=== PATIENT | female | born 1995 | race Caucasian/White ===

== ENCOUNTER 2019-05-12 13:57 | Emergency (ER) | payer OTHER, SELFPAY ==
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
== END 2019-05-12 14:42 | disposition home or self-care (01) ==
PROVIDERS: Emergency Provider Family Medicine
DX: K52.9 Noninfective gastroenteritis and colitis, unspecified (principal)
CPT/HCPCS: 99213; G0463

== ENCOUNTER 2022-12-01 01:49 | Emergency (ER) | payer OTHER, SELFPAY ==
--- NOTE | ~2022-12-01 | CT_ITS ---
EXAMINATION: CT ankle RT wo con DATE: 12/01/2022 06:25 INDICATION: Right ankle pain TECHNIQUE: Computed tomography (CT) of the right ankle was performed without intravenous contrast. Th e dose-length product (DLP) was 416.19 mGy-cm. Automated exposure control and iterative reconstructio n technique were employed. COMPARISON: None FINDINGS: There is a comminuted transverse fracture of the talar neck. The distal fracture fragment d emonstrates 8 mm of lateral subluxation relative to the talar dome. There is mild lateral widening of the tibiotalar joint. No additional fracture is identified. There is soft tissue swelling surroundin g the ankle. There is slight posterior subluxation of the calcaneus with respect to the talus. IMPRESSION: 1. Comminuted fracture of the talar neck with 8 mm of lateral subluxation of the distal fracture frag ment relative to the talar dome. 2. Slight posterior subluxation of the calcaneus with respect to the talus. Reviewed, dictated and finalized at location A. IMPRESSION: 1. Comminuted fracture of the talar neck with 8 mm of lateral subluxation of th e distal fracture fragment relative to the talar dome. 2. Slight posterior subluxation of the calcaneus with respect to the talus.
--- NOTE | ~2022-12-01 | XR_ITS ---
EXAMINATION: XR ankle RT min 3V INDICATION: Right ankle pain, initial encounter TECHNIQUE: Four views of the right ankle are obtained. COMPARISON: None available FINDINGS: There is a comminuted, transverse talar neck fracture. The distal fracture fragment appears to be laterally subluxed approximately 6 mm. There is mild widening of the lateral tibiotalar joint space. There is medial soft tissue swelling of ankle. No additional fracture is identified. IMPRESSION: 1. Comminuted transverse talar neck fracture with approximately 6 mm of lateral subluxation of the di stal fracture fragment. Reviewed, dictated and finalized at location A. IMPRESSION: 1. Comminuted transverse talar neck fracture with approximately 6 mm of lateral subluxation of the distal fracture fragment.
--- NOTE | ~2022-12-01 | XR_ITS ---
EXAMINATION: XR tibia fibula LT 2V INDICATION: Left leg pain TECHNIQUE: Two views of the left tibia and fibula are obtained on four radiographs. COMPARISON: None available FINDINGS: No fracture, dislocation, or subluxation. The bones and joint spaces are normal. There is m ild anterior soft tissue swelling over the proximal tibia. IMPRESSION: 1. No acute osseous abnormality. Reviewed, dictated and finalized at location A.
--- NOTE | ~2022-12-01 | XR_ITS ---
EXAMINATION: XR foot RT min 3V DATE: 12/01/2022 02:50 INDICATION: Right foot pain and swelling TECHNIQUE: Dorsoplantar, lateral, and 2 oblique views of the right foot were obtained. COMPARISON: None. FINDINGS: There is a comminuted talar neck fracture described on ankle radiographs. No additional fra cture of the foot is identified. The joint spaces of the mid and distal foot are unremarkable. There is soft tissue swelling of ankle.. IMPRESSION: 1. Comminuted talar neck fracture. Reviewed, dictated and finalized at location A.
[2022-12-01 01:52] VITALS: BP 117/72; PULSE 87; RESP 16; TEMP 36.6; O2SAT 99
[2022-12-01] MEDS: HYDROmorphone HCL INJ (*CRX) 1 MG/ML SYR 0.5 MG IV PUSH ×3 (02:21→07:12)
[2022-12-01] MEDS: ONDANSETRON INJ 4 MG/2 ML VIAL IV PUSH (02:21)
[2022-12-01] MEDS: ACETAMINOPHEN 500 MG TABLET 1000 MG PO (02:22)
[2022-12-01 04:16] VITALS: BP 105/61; PULSE 67; RESP 17; O2SAT 97
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
[2022-12-01] MEDS: SODIUM CHLORIDE 0.9% IV 1,000 ML 999 ML IV CONT (05:34)
[2022-12-01] MEDS: KETOROLAC 15 MG/ML VIAL (*BKC) IV PUSH (05:44)
[2022-12-01 06:21] LABS: Basophils Absolute Auto 0.1 K/mm3 (0.0-0.1); Basophils Percent Auto 0.8 % (0.2-1.2); Eosinophils Absolute Auto 0.2 K/mm3 (0-0.3); Eosinophils Percent Auto 1.4 % (0-4.4); Hematocrit 36.3 % (37.0-47.0); Hemoglobin 11.1 g/dL (12.0-15.0); Immature Granulocyte Absolute 0.04 K/mm3 (0.00-0.031); Immature Granulocyte Percent A 0.4 % (0-0.5); Lymphocytes Absolute Auto 2.69 K/mm3 (0.9-3.2); Mean Corpuscular HGB Conc 30.6 g/dl (32-36); Mean Corpuscular Hemoglobin 25.3 pg (26-34); Mean Corpuscular Volume 82.9 fl (80-100); Mean Platelet Volume 10.2 fl (7.4-10.4); Monocytes Absolute Auto 0.7 K/mm3 (0.1-0.6); Monocytes Percent Auto 6.8 % (2.6-8.5); Neutrophils Absolute Auto 7.1 K/mm3 (1.3-6.7); Neutrophils Percent Auto 65.6 % (45.5-73.1); Platelet Count Result 368 k/mm3 (150-375); Red Blood Count 4.38 M/mm3 (4.2-5.4); Red Cell Distribution Width 13.9 % (11.5-14.5); White Blood Count 10.8 K/mm3 (4.5-10.0)
[2022-12-01 06:27] LABS: Appearance Urine Cloudy (Clear); Bacteria Urine 1+ /hpf; Bilirubin Urine Negative (Negative); Blood Urine Negative (Negative); Color Urine Yellow (Yellow); Glucose Urine UA Negative (Negative); Ketones Urine Negative (Negative); Leukocyte Esterase Ur 3+ LEU/UL (Negative); Nitrate Urine Negative (Negative); Non Pathogenic Casts 0-2; Protein Urine Negative (Negative); RBC Urine 0-2 /hpf (0-2); Specific Grav Ur 1.012 (1.001-1.035); Squamous Epithelial Cell Urine None seen /hpf (Few); Urobilinogen Urine 0.2 mg/dL (<2.0); WBC Urine >100 /hpf
[2022-12-01 06:30] LABS: Anion Gap 8 mmol/L (8-16); Blood Urea Nitrogen 12 mg/dL (7-17); Calcium 8.3 mg/dL (8.4-10.2); Carbon Dioxide 23 mmol/L (22-30); Chloride 111 mmol/L (98-107); Estimated CRCL calculation 124 ml/min; Estimated Glomerular Filt Rate > 60; Glucose 108 mg/dL (65-110); Potassium 3.8 mmol/L (3.4-5.0); Sodium 142 mmol/L (137-145)
[2022-12-01 06:34] LABS: Partial Thromboplastin Time 27.5 SECONDS (22.3-36.8)
[2022-12-01 06:40] LABS: Add Urine Microscopic? YES
[2022-12-01] MEDS: CEPHALEXIN 500 MG CAPSULE PO (07:45)
[2022-12-01 08:01] VITALS: BP 110/70; PULSE 70; RESP 16; O2SAT 98
== END 2022-12-01 08:03 | disposition home or self-care (01) ==
PROVIDERS: Emergency Provider Emergency Medicine
DX: S92.111A Displaced fracture of neck of right talus, initial encounter for closed fracture (principal); S80.12XA Contusion of left lower leg, initial encounter; N39.0 Urinary tract infection, site not specified; V47.5XXA Car driver injured in collision with fixed or stationary object in traffic accident, initial encounter
CPT/HCPCS: 36415; 73590; 73610; 73630; 73700; 80048; 81001; 81025; 85025; 85610; 85730; 87077; 87086; 87147; 87186; 96361; 96374; 96375; 96376; 99284; A9270; J1170; J1885; J2405; J7030

== ENCOUNTER 2022-12-06 03:53 | Day surgery (SDC) | payer OTHER, SELFPAY ==
[2022-12-04 15:22] VITALS: BMI 39.4
--- NOTE | 2022-12-04 15:33 | PC.NURSE ---
Report to the Outpatient Waiting Room, entrance under the green pavilion located off [facility], at 0800 on 12/06/22. Planned Procedure Time: 1000. Time changes happen often and if your time is changed the preop area will call you the afternoon before. - You and your visitor will be asked to self-screen and do not enter if you have any COVID symptoms. - A mask is optional within the hospital at this time. Patients may have clear liquids (water, carbonated beverages, clear teas, apple juice) until 3 hours prior to surgery with a maximum of 20 ounces. - No food from midnight until time of surgery Take the following medications with a SIP of water the morning of surgery: pain medicine/antibiotic/nausea medications as needed DO NOT STOP ANY OF YOUR OTHER PRESCRIPTION MEDICATIONS PRIOR TO SURGERY ?EXCEPT THE FOLLOWING Medications to discontinue per physician Date to take last dose Please no make-up, nail italian, hairspray, perfume, deodorant, or body powder the day of surgery. No jewelry (including any body piercings) or valuables the day of surgery, leave them at home. Please take a shower or bath the night before, or the morning of, surgery with an antibacterial soap. Wear comfortable, loose fitting clothing. - Jewelry must be removed prior to entering the operating room. Rings and piercings that are not removed may be cut off. - The hospital will not accept responsibility for valuables. - Please leave all valuables, including medications, at home the day of surgery. If you are going home after surgery, a licensed services delivery driver must drive you home. - NO public transportation without another adult if you receive anesthesia. - We recommend that an adult stay with you for 24 hours following discharge. - We also recommend that you do not drive, make important decision, drink alcoholic beverages, or take any drugs that were not prescribed by your health care provider for at least 24 hours after your discharge time. For Pediatric surgeries, we recommend two adults accompany the child home. Follow any additional instructions given to you from your surgeon. If you or anyone in your household have experienced Covid symptoms in the past week, please notify your surgeon or the nurse liaison at the phone number below for possible testing. Telephone instructions given to patient and asked if any additional questions and then verbalized understanding. Patient advised to call surgeon office or pre surgery nurse liaison [phone] if any additional questions.
[2022-12-06] VITALS (7 sets, daily range): BP systolic 90–119; BP diastolic 57–69; PULSE 53–79; RESP 12–16; TEMP 37.2; O2SAT 96–100
--- NOTE | ~2022-12-06 | XR_ITS ---
EXAMINATION: XR surgery orthopedic DATE: 12/06/2022 11:11 INDICATION: ORIF right talus TECHNIQUE: 5 fluoroscopic images of the right ankle and hindfoot were obtained during procedure perfo rmed by Dr. Patel. Radiologist was not present for the imaging or procedure. The amount of fluorosc opy time used during this procedure was 0.5 minutes. COMPARISON: CT dated 12/01/2022 FINDINGS: Interval open reduction and internal fixation of the previously seen comminuted fracture extending ac ross the neck of the talus. On CT the fracture appears to involve the anteriormost margin of the jasmyne cular surface at the talar dome and posterior facet of the subtalar joint. The fracture is been reduc ed to near anatomic alignment and is fixed with a medial sided cannulated compression screw and a lat eral sided malleable plate and screws. No other fractures identified. Joint spaces appear relatively preserved. Small amount of likely postoperative gas in the ankle and subtalar joints. IMPRESSION: 1. Near-anatomic alignment post open reduction internal fixation of a fracture across the neck of the talus. See procedure note for further detail. Reviewed, dictated and finalized at location A.
--- NOTE | 2022-12-06 07:25 | WPDHPUPDATE1 ---
History and Physical Update Update Date/Time: 12/06/22 07:25 History and Physical has been reviewed, including an updated exam of the patient. There are NO changes in the patient's condition. Risks, benefits, and alternatives have been discussed and questions answered. Patient agrees to proceed with procedure.
[2022-12-06] MEDS: ACETAMINOPHEN 500 MG TABLET 1000 MG PO (08:50)
[2022-12-06] MEDS: KETOROLAC 15 MG/ML VIAL (*BKC) IV PUSH (08:50)
--- NOTE | 2022-12-06 09:34 | P.PNAN_ITS ---
Anes - Initial Pre Proc Eval Procedure: Operation Date: 12/06/22 10:00 Proposed Procedures p Open Reduction Internal Fixation Right Talus Fracture - Ray Patel MD Date/Time: 12/06/22 09:34 Surgeon: Ray Patel MD Pre Op Diagnosis: right foot fracture Patient Data Age: 27 Gender: F Height: 1.63 m Weight: 112.6 kg Allergies Allergy/AdvReac Type Severity Reaction Status Date / Time No Known Allergies Allergy Verified 12/06/22 09:05 Home Medications Medication Instructions Recorded Confirmed Type prochlorperazine maleate 10 mg 10 mg PO Q6H PRN nausea and 05/12/19 12/04/22 Rx tablet (Compazine) vomiting #10 tabs cephalexin 500 mg capsule 500 mg PO Q12H #20 caps 12/01/22 12/04/22 Rx acetaminophen 500 mg tablet 1,000 mg PO TID PRN Pain 12/04/22 12/04/22 History ibuprofen 800 mg tablet 800 mg PO TID PRN pain 7 days #21 12/04/22 12/04/22 Rx tabs oxycodone 5 mg tablet 5 mg PO Q4H PRN pain #14 tabs 12/04/22 12/04/22 Rx Patient hx anesthesia problems: none Family hx anesthesia problems: none Results Review: All pre-operative results and documents have been reviewed as part of the pre- operative evaluation. [facility]LY [facility] Social History Social History Smoking packs per day: 0.5 Smoking cigarettes per day: 10.0 Years smoked: 12 Smoking pack-years: 6.00 Smoking status: Current every day smoker Tobacco type: cigarettes Alcohol intake: current Alcohol use details: every 1-2 months Substance use: current Substance use type: marijuana Other substance usage details: 2x/day Living arrangements: with family Spiritual care concerns: No Anes - Eval Final PreProcedure Day of Procedure 12/06/22 09:34 Patient weight: morbidly obese Heart: regular rate and rhythm Lungs: clear to auscultation Airway: Mallampati scale class II Neurological: alert and oriented Last oral intake: >/= 8 hours ASA classification: III Emergent: no Anesthetic plan: proceed Anesthesia type and monitoring: general LMA and standard monitoring Results Review: All pre-operative results and documents have been reviewed as part of the pre- operative evaluation. Informed Consent: The patient's anesthetic plan and its attendant risks and benefits were d iscussed with the patient/family/POA. Questions were solicited and answers provided to the satisfaction of the patient/family/POA.
[2022-12-06] MEDS: LACTATED RINGERS 1,000 ML 30 ML IV CONT ×2 (09:37→11:40)
[2022-12-06] MEDS: ceFAZolin 2 GM/D5W 50 ML 2 GM/50 ML BAG IVPB (09:44)
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
[2022-12-06] MEDS: BUPivacaine HCL 0.5% 10 ML AMP 20 ML INFILTRATE (10:20)
[2022-12-06] MEDS: fentaNYL CITRATE INJ (*CRX) 100 MCG/2 ML VIAL 25 MCG IV PUSH ×7 (11:45→12:20)
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
[2022-12-06] MEDS: oxyCODONE HCL (*CRX) 5 MG TAB IR PO (12:59)
== END 2022-12-06 13:40 | disposition home or self-care (01) ==
PROVIDERS: Visit Provider Orthopaedic Surgery
PROC: (CPT 28485; principal; 2022-12-06 10:00)
DX: S92.111A Displaced fracture of neck of right talus, initial encounter for closed fracture (principal); V49.60XA Unspecified car occupant injured in collision with unspecified motor vehicles in traffic accident, initial encounter; F17.210 Nicotine dependence, cigarettes, uncomplicated; E66.01 Morbid (severe) obesity due to excess calories; Z68.41 Body mass index [BMI] 40.0-44.9, adult; F12.90 Cannabis use, unspecified, uncomplicated
CPT/HCPCS: 28445; 99199; A9270; J0690; J1100; J1170; J1885; J2250; J2405; J2704; J3010; J7120

== ENCOUNTER 2023-01-31 18:46 | Emergency (ER) | payer OTHER, SELFPAY ==
[2023-01-31 18:50] VITALS: BP 122/95; PULSE 83; RESP 16; TEMP 36.8; O2SAT 99
--- NOTE | 2023-01-31 18:50 | ED.ABDPAIN ---
HPI - Abdominal Pain General Chief Complaint: Nausea/Vomiting/Diarrhea Stated Complaint: Nausea/Abdominal Pain/Back Pain Time Seen by Provider: 01/31/23 18:51 Source: patient Mode of arrival: ambulatory Limitations: no limitations History of Present Illness HPI narrative: Charles is a 27-year-old female patient presenting to the clinic today with complaints of nausea, abdominal pain, and back pain since she woke up this morning. She reports the pain seems to be getting gradually worse throughout the day. Took ibuprofen a couple hours prior to arrival and stated that this did not help her pain. Rates her pain currently at 10 at 10. Denies vomiting. Last bowel movement was today and normal for the patient. No blood in the stool. Denies bloating, urinary symptoms, or diarrhea. Last menstrual period was around January 12 or . States when she takes a deep breath there is a sharp pain that shoots and her bilateral lower abdomen sides. Denies any vaginal discharge. Related Data Allergies Allergy/AdvReac Type Severity Reaction Status Date / Time No Known Allergies Allergy Verified 01/01/23 13:30 Review of Systems Review of Systems: Pertinent positives per HPI. Patient denies any fever, chills, rash, headache, visual changes, dizziness, cough, runny nose, sore throat, shortness of breath, chest pain, palpitations, vomiting, diarrhea, constipation, or any urinary issues. [facility] Social History Social History Smoking packs per day: 0.5 Smoking cigarettes per day: 10.0 Years smoked: 12 Smoking pack-years: 6.00 Smoking status: Current every day smoker Tobacco type: cigarettes Alcohol intake: current Alcohol use details: every 1-2 months Substance use: current Substance use type: marijuana Other substance usage details: 2x/day Living arrangements: with family Spiritual care concerns: No Comments At the time of my signature, I reviewed and agree with the nursing past medical, surgical, social, and family history. There is no relevant family history pertinent to the patient complaint. Exam Narrative: General: Well-developed, morbidly obese, in no apparent distress. Head: Normocephalic, atraumatic. Cardio: Regular rate and rhythm, s1 and s2 normal, no murmur appreciated. Resp: Clear to auscultation bilaterally, no rhonchi, rales, wheezing or rubs. Abdomen: Soft, pliable, bowel sounds present in all quadrants, tender to palpation over the mid lower abdomen with pain radiating into the bilateral lower size of the abdomen, no organomegly, no CVAT tenderness. Course Course Emergency Course: Portions of this record may have been created with voice recognition software. Level of Care: Express Care Visit Vital Signs Vital signs: Vital signs reviewed Transfer Transfered to: [facility] ([place]) Transportation: Other (private car) Transfer rationale: Lower bilateral abdomen pain, back pain, nausea MDM - Abdominal Pain MDM Narrative Medical decision making narrative: At the time of visit patient is resting comfortably on the exam table. Urinalysis was performed and showed trace of leukocytes and trace of intact blood. Patient denies any urinary symptoms. Patient is rating pain 10 at 10 currently with nausea. Unable to do an x-ray at this time due to staffing. Recommend transfer to the ER for further evaluation. Patient like to be transferred to [facility] ER in [place]. Report called to Magdalena PATTON for continuity of care. Zhanna Palacios NP accepts patient for transfer. Patient to be transferred via private car. Differential Diagnosis Differential diagnosis: Likely abdominal pain, acute appendicitis, calculus of kidney, constipation, diverticulitis, endometriosis, gastroenteritis, pancreatitis, small bowel obstruction and other (Acute nausea/vomiting) Discharge Plan Discharge Clinical Impression: Bilateral lower abdominal pa
== END 2023-01-31 19:20 | disposition short-term general hospital (02) ==
PROVIDERS: Emergency Provider Nurse Practitioner Family
DX: R10.31 Right lower quadrant pain (principal); R10.32 Left lower quadrant pain; R11.0 Nausea; M54.9 Dorsalgia, unspecified; F17.210 Nicotine dependence, cigarettes, uncomplicated
CPT/HCPCS: 81003; 81025; 99212; G0463

== ENCOUNTER 2023-06-04 12:38 | Emergency (ER) | payer OTHER, SELFPAY ==
[2023-06-04 12:44] VITALS: BP 122/78; PULSE 81; RESP 20; TEMP 37; O2SAT 100
--- NOTE | 2023-06-04 12:58 | ED.FEMALEGU ---
HPI - Female Genitourinary General Chief complaint: Urogenital-Female Stated complaint: Low Back Pain/Abdominal Pain Time Seen by Provider: 06/04/23 13:06 Source: patient and RN notes reviewed Mode of arrival: ambulatory Limitations: no limitations History of Present Illness HPI Narrative: 27 y/o female presented for c/o low abdominal cramping and low back pain x3 days. Denies dysuria, hematuria, nausea, vomiting, abdominal pain, flank pain, constipation, diarrhea, fevers or chills. Denies vaginal discharge or concern for STD. states she was last treated for UTI a few weeks ago and states symptoms had resolved. She states she is scheduled with her OBGYN tomorrow for sterilization vs control. Pt is not sexually active at this time. LMP 05/23. Related Data Allergies Allergy/AdvReac Type Severity Reaction Status Date / Time No Known Allergies Allergy Verified 06/04/23 12:58 Review of Systems Review of Systems: CONSTITUTIONAL: Denies body aches, fever, chills, or sweats. CARDIOVASCULAR: Denies chest pain, palpitations, or edema. RESPIRATORY: Denies cough or dyspnea. GASTROINTESTINAL: reports abdominal pain, denies nausea, vomiting, or diarrhea. GENITOURINARY: denies dysuria, frequency, urgency, hematuria, flank pain SKIN: Denies rash, itching, or wounds. MUSCULOSKELETAL: reports back pain [facility] Social History Social History Smoking packs per day: 0.5 Smoking cigarettes per day: 10.0 Years smoked: 12 Smoking pack-years: 6.00 Smoking status: Current every day smoker Tobacco type: cigarettes Alcohol intake: current Alcohol use details: every 1-2 months Substance use: current Substance use type: marijuana Other substance usage details: 2x/day Living arrangements: with family Spiritual care concerns: No Comments At time of signature, I have reviewed and agree with nursing past medical, surgical, social and family history unless otherwise noted. Please see nursing chart for further information. There is no relevant family history pertinent to the presenting complaint Exam Narrative: GENERAL: Well-appearing ENT: Mucous membranes pink and moist. NECK: Normal AROM. Supple. CHEST: No respiratory distress. Clear to auscultation. HEART: Regular rate and rhythm. ABDOMEN: Soft, nontender, nondistended, normal active bowel sounds. No CVA tenderness SKIN: Warm, dry, no rash. NEURO: No focal deficits. Alert and oriented x3. Gait steady. PSYCH: Normal affect. Course Course Emergency Course: Patient is aware of diagnosis, understands and agrees to treatment plan. Anticipatory guidance given. Patient agrees to follow-up as directed and is aware of reasons to seek care at the emergency department. Portions of this record may have been created with voice recognition software Level of Care: Express Care Visit Vital Signs Vital signs: Vital Signs Temperature 98.6 F 06/04/23 12:44 Pulse Rate 81 06/04/23 12:44 Respiratory Rate 20 06/04/23 12:44 Blood Pressure 122/78 06/04/23 12:44 Pulse Oximetry 100 06/04/23 12:44 Oxygen Delivery Room Air 06/04/23 12:44 Temperature 98.6 F 06/04/23 12:44 Pulse Rate 81 06/04/23 12:44 Respiratory Rate 20 06/04/23 12:44 Blood Pressure 122/78 06/04/23 12:44 Pulse Oximetry 100 06/04/23 12:44 Oxygen Delivery Room Air 06/04/23 12:44 Reviewed MDM - Female Genitourinary MDM Narrative Medical decision making narrative: Patient had presented with complaint of lower abdominal cramping and low back pain for 3 days. Pain is constant and severe. She is advised to go ER for further evaluation. She states she cannot go with this time because of childcare. Prescription for Cipro sent. She is aware this is not necessarily curative, and is advised to go to the emergency room immediately for any worsening symptoms or concerns. She is scheduled with her O
== END 2023-06-04 13:20 | disposition left against medical advice (07) ==
PROVIDERS: Emergency Provider Nurse Practitioner Family
DX: R10.30 Lower abdominal pain, unspecified (principal); F17.210 Nicotine dependence, cigarettes, uncomplicated; F12.90 Cannabis use, unspecified, uncomplicated
CPT/HCPCS: 81003; 87086; 99213; G0463

== ENCOUNTER 2023-11-27 12:46 | Outpatient (CLI) | payer OTHER, SELFPAY ==
[2023-11-27 19:06] LABS: Hemoglobin 11.6 g/dL (12.0-15.0); Mean Corpuscular HGB Conc 30.5 g/dl (32-36); Mean Corpuscular Hemoglobin 25.2 pg (26-34); Mean Corpuscular Volume 82.6 fl (80-100); Mean Platelet Volume 10.9 fl (7.4-10.4); Platelet Count Result 345 k/mm3 (150-375); Red Cell Distribution Width 15.7 % (11.5-14.5); White Blood Count 8.8 K/mm3 (4.5-10.0)
[2023-11-27 19:45] LABS: Iron 44 ug/dL (37-170)
[2023-11-27 19:54] LABS: Percent Iron Saturation 9 % (20-50)
[2023-11-27 20:19] LABS: Alanine Aminotransferase 15 U/L (6-35); Albumin Level 4.3 g/dL (3.5-5.1); Alkaline Phosphatase 73 U/L (38-126); Anion Gap 10 mmol/L (4-12); Aspartate Amino Transferase 53 U/L (14-36); Bilirubin,Total 0.3 mg/dL (0.2-1.3); Blood Urea Nitrogen 13 mg/dL (7-17); Calcium 9.2 mg/dL (8.4-10.2); Carbon Dioxide 24 mmol/L (22-30); Chloride 103 mmol/L (98-107); Cholesterol 153 mg/dL (0-200); Estimated Glomerular Filt Rate > 60; Glucose 83 mg/dL (65-110); HDL Direct 61 mg/dL; Potassium 4.1 mmol/L (3.4-5.0); Sodium 137 mmol/L (137-145); Triglycerides 73 mg/dL (<150)
[2023-11-27 20:21] LABS: Ferritin 5.81 ng/mL (6.24-137)
[2023-11-27 20:30] LABS: LDL Cholesterol Direct 73 mg/dL
== END 2023-11-27 12:47 | disposition home or self-care (01) ==
LOC: ANHBWCLAB 12:47
PROVIDERS: PCP Nurse Practitioner Adult Health; Visit Provider Nurse Practitioner Adult Health
DX: Z13.9 Encounter for screening, unspecified (principal)
CPT/HCPCS: 36415; 80053; 80061; 82728; 83540; 83550; 84443; 85027

== ENCOUNTER 2023-12-16 18:57 | Emergency (ER) | payer OTHER, SELFPAY ==
[2023-12-16 19:02] VITALS: BP 115/58; PULSE 86; RESP 20; TEMP 37.1; O2SAT 100
--- NOTE | 2023-12-16 19:13 | ED.FEMALEGU ---
HPI - Female Genitourinary General Chief complaint: Upper Respiratory Infection Stated complaint: Fever/No Smell or Taste/Body Ache/STD Exposure Time Seen by Provider: 12/16/23 19:14 Source: patient and RN notes reviewed Mode of arrival: ambulatory Limitations: no limitations History of Present Illness HPI Narrative: 28-year-old female presented for complaint of headache, body aches, sinus pressure/congestion, Sore throat, loss of taste and smell, cough. Onset today. Take Mucinex and ibuprofen for symptoms. Denies known sick contacts. Denies sob, wheezing, n/v/d/f/c. Pt also reports exposure to Trichomonas. She states she was notified 4 days ago by her most recent sexual partner they tested positive for Trichomonas. She states their last sexual contact was 1 week ago. she endorses some redness and swelling to the vaginal area over the past few days. She denies vaginal discharge, itching, denies hematuria, nausea, vomiting, abdominal pain, flank pain. Related Data Home Medications Medication Instructions Recorded Confirmed norgestimate 0.25 mg-ethinyl 1 tablet PO DAILY 10/24/23 12/16/23 estradiol 35 mcg tablet (Mariaa) Allergies Allergy/AdvReac Type Severity Reaction Status Date / Time No Known Allergies Allergy Verified 12/16/23 19:31 Review of Systems Review of Systems: CONSTITUTIONAL: Reports body aches, denies fever, chills, or sweats. CARDIOVASCULAR: Denies chest pain, palpitations, or edema. RESPIRATORY: Denies wheezing or dyspnea. GASTROINTESTINAL: Denies abdominal pain, nausea, vomiting, or diarrhea. GENITOURINARY: denies dysuria, frequency, urgency, hematuria, flank pain SKIN: Denies rash, itching, or wounds. MUSCULOSKELETAL: Denies back pain or myalgia. [facility] Family History Family History Father No problems noted. Social History Social History Smoking packs per day: 0 Smoking cigarettes per day: 0.0 Smoking status: Current every day smoker Tobacco type: cigarettes and e-cigarettes/vaping Additional smoking assessment comments: Vaping for 2 years Alcohol intake: current Alcohol use details: Not often Substance use: former Substance use type: marijuana Lack of Transportation: No Lack of Food: Never True Current Housing: I Have Housing Concerned About Future Housing: No Difficulty Paying Gas/Electric Bills: No Difficulty Paying for Meds: No Currently Unemployed: No Education: High School Diploma/GED Difficulty w/ Childcare or Family Care: No Living arrangements: with family Gender identity (if verbalized by the patient): Female Spiritual care concerns: No Agree to blood products: Yes Comments At time of signature, I have reviewed and agree with nursing past medical, surgical, social and family history unless otherwise noted. Please see nursing chart for further information. There is no relevant family history pertinent to the presenting complaint Exam Narrative: GENERAL: Well-appearing ENT: Mucous membranes pink and moist. Throat without erythema, tonsils absent. TMs normal bilaterally. No hoarse voice. CHEST: No respiratory distress. Clear to auscultation. HEART: Regular rate and rhythm. ABDOMEN: Soft, nontender, nondistended, normal active bowel sounds. No CVA tenderness SKIN: Warm, dry, no rash. NEURO: No focal deficits. Alert and oriented x3. Gait steady. PSYCH: Normal affect. Course Course Emergency Course: Patient is aware of diagnosis, understands and agrees to treatment plan. Anticipatory guidance given. Patient agrees to follow-up as directed and is aware of reasons to seek care at the emergency department. Portions of this record may have been created with voice recognition software Level of Care: Express Care Visit Vital Signs Vital signs: Vital Signs Temperature 98.7 F 12/15
[2023-12-16 19:44] LABS: BEDSIDEPREGUCG Negative (Negative); EDINFLUASCREEN Negative (Negative); EDINFLUBSCREEN Negative (Negative)
[2023-12-16 19:53] LABS: EDUAAPPEAR Cloudy; EDUABILI Negative (Negative); EDUABLOOD Trace (Negative); EDUACOLOR1 Yellow; EDUAGLUCOSE Negative (Negative); EDUAKETONE Negative (Negative); EDUALEUKO 1+ (Negative); EDUANITRATE Negative (Negative); EDUAPH 5.5; EDUAPROTEIN Negative (Negative); EDUAUROBILI 0.2
[2023-12-17 19:35] LABS: Trichomonas Vag PCR DETECTED (NOT DETECTE)
[2023-12-17 20:09] LABS: Chlamydia trachomatis NOT DETECTED (NOT DETECTE); Neisseria gonorrhoeae PCR NOT DETECTED (NOT DETECTE)
== END 2023-12-16 19:55 | disposition home or self-care (01) ==
PROVIDERS: Emergency Provider Nurse Practitioner Family; PCP Obstetrics & Gynecology
DX: B34.9 Viral infection, unspecified (principal); Z20.2 Contact with and (suspected) exposure to infections with a predominantly sexual mode of transmission; F17.290 Nicotine dependence, other tobacco product, uncomplicated
CPT/HCPCS: 81003; 81025; 87081; 87086; 87491; 87591; 87661; 87804; 87880; 99213; G0463

== ENCOUNTER 2024-08-18 12:29 | Emergency (ER) | payer OTHER, SELFPAY ==
--- OUTSIDE RECORDS SUMMARY | 2024-08-18 12:32 | XMS_ITS | Clinical Summary ---
Author Organization [facility] Address [address] [place] [address] Phone Care Team Providers Care Film Loader Name Role Phone Provider, None Primary Care Provider Unavailabl e Allergies No known active allergies Medications ibuprofen (MOTRIN) 600 MG Tablet Take 1 Tab by mouth every 6 hours as needed for Pain. 20 Tab 0 6 Active ondansetron (ZOFRAN ODT) 4 MG TABLET DISPERSIBLE Take 1 Tab by mouth every 8 hours as needed for Nausea. 10 Tab 7 Active HYDROcodone-acet aminophen (NORCO) 5-325 MG TabletIndication s:Abdominal pain, right lower quadrant Take 1 Tablet by mouth every 6 hours as needed for Moderate or more severe pain. 8 Tablet 1 Active ibuprofen (MOTRIN) 600 MG Tablet Take 1 Tablet by mouth every 6 hours as needed for Moderate or more severe pain. 30 Tablet 1 Active ondansetron (ZOFRAN) 4 MG Tablet Take 1-2 Tablets by mouth every 8 hours as needed for Nausea - 1st line. 10 Tablet 5 Active Active Problems No known active problems Encounters Date Type Department Care Team Description 08/13/2024 11:51 AM CDT - 08/13/2024 1:02 PM CDT Emergency [facility] Emergency [address] [place] [address] Rubina Vasquez, MANAGER CARE MANAGEMENT, FABRICATOR [employer]IFICIAL BREAST Discharge Disposition: LWBS 08/13/2024 Travel 07/13/2024 10:53 AM CDT - 07/13/2024 12:36 PM CDT Emergency [facility] Emergency [address] [place] [id number] David Mcgregor, IRIS Vomiting affecting Discharge Disposition: Discharged to home or Selfcare 07/13/2024 Travel from Last 3 Months Immunizations Immunization Administration Dates Next Due DTAP VACCINE 10/10/2001,11/05/2000,11/04/1998 DTP-Hib 02/19/1997,1996,1996 Hepatitis A Vaccine, Pediatric/adolescent, 2 Dose Schedule 10/25/2004 Hepatitis A, Pediatric, Unsp ecified Formulation 11/20/2010 Hepatitis B Vaccine, Pediatric/adolescent 02/19/1997,1996,1996 Hib Vaccine,unspecified Formulation 11/05/2000,1 Human Papillomavirus (HPV) 9 -valent Vaccine 05/09/2018,03/05/2018 Human Papillomavirus Vaccine (HPV), quadrivalent 07/02/2013,11/20/2010 Inactivated Polio Vaccine 10/10/2001,11/05/2000 MMR Vaccine 10/10/2001,11/05/2000,11/23/1997 Meningococcal Polysaccharide Vaccine (MPSV4) 11/20/2010 Meningococcal Vaccine 07/02/2013 OPV 11/04/1998, 7,1996,10/21 TDAP Vaccine 10/10/2021,09/22/2017,11/20/2010 Varicella Vaccine Live 04/13/2003,09/19/1999 Social History Tobacco Use Types Packs/Day Years Used Date Smoking Tobacco: Every Day Cigarettes Smokeless Tobacco: Never Alcohol Use Standard Drinks/Week Comments Yes 0 (1 standard drink = 0.6 oz pur e alcohol) occasional Comments No Sex and Gender Information Value Date Recorded Sex Assigned at Female 06/21/2023 2:11 AM CDT Legal Sex Female 11:52 PM CDT Gender Identity Female 06/21/2023 2:11 AM CDT Sexual Orientation Not on file Last Filed Vital Signs Vital Sign Reading Time Taken Comments Blood Pressure 129/83 08/13/2024 12:15 PM CDT Pulse 76 08/13/2024 12:30 PM CDT Temperature 36.2 C (97.2 F) 08/13/2024 11:46 AM CDT Respiratory Rate 17 08/13/2024 11:46 AM CDT Oxygen Saturation 100% 08/13/2024 12:30 PM CDT Inhaled Oxygen Concentration - - Weight 99.8 kg (220 lb) 08/13/2024 11:46 AM CDT Height 162.6 cm (5' 4 ) 08/13/2024 11:46 AM CDT Body Mass Index 37.76 08/13/2024 11:46 AM CDT Plan of Treatment Health Maintenance Due Date Last Done Comments Hepatitis C Virus (HCV) Screening 1996 Pneumococcal Immunization Combined (1 of 2 - PCV) 08/20/2015 Pap Smear 2017 SARS-COV-2 Immunization (1 - season) 2023 Influenza Immunization (Season Ended) 2024 DTaP/Tdap/Td Immunization (9 - Td or Tdap) 10/11/2031 10/10/2021, 09/22/2017, 11/20/2010, Additional history exists Respiratory Syncytial Virus (RSV) Immunization (Adult) (1 - 1-dose 75+ series) 08/20/2071 Hepatitis B Immunization Completed 997, 1996, 1996 Meningococcal Immunization (ACWY) Completed 07/02/2013, 11/20/2010 Human Papillomavirus (HPV) Immunization Completed 05/09/2018, 03/05/2018, 07/02/2013, Additional history exists Rotavirus Immunization Aged Out No lo nger eligible based on patient's age to complete this topic Procedures Procedure Name Priority Date/Time Associated Diagnosis Comments GOLD TOP TUBE STAT 07/13/2024 11:13 AM CDT BLUE TOP TUBE STAT 07/13/2024 11:13 AM CDT CBC WITH AUTO DIFFERENTIAL STAT 07/13/2024 11:13 AM CDT EXTRA TUBES STAT 07/13/2024 11:13 AM CDT URINALYSIS REFLEX IF INDICATED BY ABNORMAL RESULTS STAT 07/13/2024 11:13 AM CDT MAGNESIUM (MG) STAT 07/13/2024 11:13 AM CDT LIPASE STAT 07/13/2024 11:13 AM CDT CMP (COMPREHENSIVE METABOLIC PANEL) STAT 07/13/2024 11:13 AM CDT COMPLETE BLOOD COUNT (CBC) WITH DIFF STAT 07/13/2024 11:13 AM CDT CULTURE, URINE STAT 07/13/2024 11:13 AM CDT RSV,SARS-COV-2,INFLUE NZA A&B BY PCR STAT 07/13/2024 11:13 AM CDT from Last 3 Months Results * (ABNORMAL) Urinalysis w/ Reflex (07/13/2024 11:13 AM CDT) SPECIFIC GRAVITY 1.025 1.003 - 1.030 07/13/2024 11:51 AM CDT [facility] URINE PH 5.0 5.0 - 9.0 07/13/2024 11:51 AM CDT [facility] WBC ESTERASE 500 /uL(A) Negative 07/13/2024 11:51 AM CDT [facility] NITRITE Negative Negative 07/13/2024 11:51 AM CDT [facility] PROTEIN, RANDOM URINE 30 mg/dL(A) Negative 07/13/2024 11:51 AM CDT [facility] URINE GLUCOSE, QUAL Negative Negative 07/13/2024 11:51 AM CDT [facility] URINE KETONES 15 mg/dL(A) Negative 07/13/2024 11:51 AM CDT [facility] UROBILINOGEN Normal Normal mg/dL 07/13/2024 11:51 AM CDT [facility] URINE BLOOD 10 /uL(A) Negative curt/ul 07/13/2024 11:51 AM CDT [facility] URINALYSIS COLOR Yellow 07/14/19 11:51 AM CDT [facility] URINALYSIS CLARITY Slightly Cloudy 07/13/2024 11:51 AM CDT [facility] WBC (Urine) 11-20(A) Negative, 0-5 /hpf 07/13/2024 11:51 AM CDT [facility] URINE RBC'S 0-2 Negative, 0-2 /hpf 07/13/2024 11:51 AM CDT [facility] EPITHELIAL CELLS Large amount squamous /lpf 07/13/2024 11:51 AM CDT [facility] BACTERIA, URINE Few(A) Negative /hpf 07/13/2024 11:51 AM CDT [facility] Urine URINE SPECIMEN / Unknown Non-Phlebotomy Collection / Unknown 07/13/2024 11:13 AM CDT 07/13/2024 11:23 AM CDT David Mcgregor PAC URINE ORDERABLES Maddie l Result [facility] [address] [place] [address] * RSV,SARS-COV-2,INFLUENZA A&B BY PCR (07/13/2024 11:13 AM CDT) FLU A Negative Negative, Error 07/13/2024 12:02 PM CDT [facility] FLU B Negative Negative 07/13/2024 12:02 PM CDT [facility] RESP SYNC VIRUS Negative Negative 12:02 PM CDT [facility] SARSCOV2 NOT DETECTED (Reference Range for this test is Not Detected) 07/13/2024 12:02 PM CDT [facility] Comment:This test was perfor med by a Reverse Journeyman Power Plant Operator PCR Method. Swab NASOPHARYNGEAL STRUCTURE / Unknown Non-Phlebotomy Collection / Unknown 07/13/2024 11:13 AM CDT 07/13/2024 11:23 AM CDT David Mcgregor PAC MICROBIOLOGY - GENERA L ORDERABLES Final Result Performing Organization Address City/[facility]/ZIP Co de Phone Number [facility] [address] [place] [address] * Gold Top Tube (07/13/2024 11:13 AM CDT) Blood No Phlebotomy Charged / Unknown 07/13/2024 11:13 AM CDT 07/13/2024 11:24 AM CDT David Mcgregor PAC CHEMISTRY ORDERABLES Final Result Performing Organization Address City/[facility]/ZIP Co de Phone Number [facility] [address] [place] [address] * Blue Top Tube (07/13/2024 11:13 AM CDT) Blood No Phlebotomy Charged / Unknown 07/13/2024 11:13 AM CDT 07/13/2024 11:24 AM CDT David Mcgregor PAC HEMATOLOGY ORDERABLES Final Result Performing Organization Address City/[facility] Co de Phone Number [facility] [address] [place] [address] * (ABNORMAL) CBC with Auto Differential (07/13/2024 11:13 AM CDT) WBC 10.63 4.00 - 12.00 10(3)/mcL 07/13/2024 11:26 AM CDT [facility] RBC 5.02 3.80 - 5.30 10(6)/mcL 07/13/2024 11:26 AM CDT [facility] HEMOGLOBIN (HGB) 13.2 12.0 - 15.8 g/dL 07/13/2024 11:26 AM CDT [facility] HEMATOCRIT (HCT) 40.4 36.0 - 47.0 % 07/13/2024 11:26 AM CDT [facility] MCV 80.5(L) 82.0 - 96.0 fL 07/13/2024 11:26 AM CDT [facility] MCH 26.3 26.0 - 34.0 pg 07/13/2024 11:26 AM CDT [facility] MCHC 32.7 31.0 - 36.0 g/dL 07/13/2024 11:26 AM CDT [facility] PLATELET COUNT 318 140 - 440 10(3)/[facility] 07/13/2024 11:26 AM CDT [facility] RDW 13.4 11.8 - 15.5 % 07/13/2024 11:26 AM CDT [facility] MPV 10.7 9.7 - 12.4 fL 07/13/2024 11:26 AM CDT [facility] NEUTROPHILS 90.3(H) 47.0 - 73.0 % 07/13/2024 11:26 AM CDT [facility] LYMPHOCYTES 5.3(L) 18.0 - 42.0 % 07/13/2024 11:26 AM CDT [facility] MONOCYTES 3.6(L) 4.0 - 12.0 % 07/13/2024 11:26 AM CDT [facility] EOSINOPHILS 0.4 0.0 - 5.0 % 07/13/2024 11:26 AM CDT [facility] BASOPHILS 0.4 0.0 - 1.0 % 07/13/2024 11:26 AM CDT [facility] ABSOLUTE NEUTROPHILS 9.61(H) 1.60 - 7.70 10(3)/[facility] 07/13/2024 11:26 AM CDT [facility] ABSOLUTE LYMPHOCYTES 0.56(L) 1.30 - 3.20 10(3)/[facility] 07/13/2024 11:26 AM CDT [facility] ABSOLUTE MONOCYTES 0.38 0.20 - 1.00 10(3)/[facility] 07/13/2024 11:26 AM CDT [facility] ABSOLUTE EOSINOPHIL 0.04 0.00 - 0.40 10(3)/mcL 07/13/2024 11:26 AM CDT [facility] ABSOLUTE BASOPHILS 0.04 0.00 - 0.10 10(3)/mcL 07/13/2024 11:26 AM CDT [facility] NRBC PER 100 WBC 0 07/14/19 11:26 AM CDT [facility] Blood Venipuncture / Unknown 07/13/2024 11:13 AM CDT 07/13/2024 11:23 AM CDT David Mcgregor PAC HEMATOLOGY ORDERABLES Final Result Performing Organization Address City/[facility]/ZIP Co de Phone Number [facility] [address] [place] [address] * Magnesium (07/13/2024 11:13 AM CDT) MAGNESIUM 1.8 1.6 - 2.6 mg/dL 07/13/2024 11:49 AM CDT [facility] Blood Venipuncture / Unknown 07/13/2024 11:13 AM CDT 07/13/2024 11:23 AM CDT David Mcgregor PAC CHEMISTRY ORDERABLES Final Result Performing Organization Address City/[facility]/ZIP Co de Phone Number [facility] [address] [place] [address] * Lipase (07/13/2024 11:13 AM CDT) LIPASE 10 8 - 78 U/L 07/13/2024 11:49 AM CDT [facility] Blood Venipuncture / Unknown 07/13/2024 11:13 AM CDT 07/13/2024 11:23 AM CDT David Mcgregor PAC CHEMISTRY ORDERABLES Final Result [facility] [address] [place] [address] * Culture, Urine (07/13/2024 11:13 AM CDT) CULTURE RESULTS Mixed Growth or 3 or More Organisms, Probable Collection Contamination, Suggest Repeat 07/14/2024 11:20 PM CDT [facility] URINE SPECIMEN / Unknown Non-Phlebotomy Collection / Unknown 07/13/2024 11:13 AM CDT 07/13/2024 11:23 AM CDT David Mcgregor [facility] MICROBIOLOGY - GENERA L ORDERABLES Final Result Performing Organization Address City/[facility]/ZIP Co de Phone Number [facility] [address] [place] [address], * (ABNORMAL) CMP (07/13/2024 11:13 AM CDT) SODIUM 136 136 - 145 mmol/L 07/13/2024 11:49 AM CDT [facility] POTASSIUM 3.6 3.5 - 5.1 mmol/L 07/13/2024 11:49 AM CDT [facility] CHLORIDE 108(H) 98 - 107 mmol/L 07/13/2024 11:49 AM CDT [facility] CO2, VENOUS 21(L) 22 - 30 mmol/L 07/13/2024 11:49 AM CDT [facility] ANION GAP 10.6 <18.0 mmol/L 07/13/2024 11:49 AM CDT [facility] GLUCOSE 121(H) 70 - 99 mg/dL 07/13/2024 11:49 AM CDT [facility] BUN 9 5 - 18 mg/dL 07/13/2024 11:49 AM CDT [facility] CREATININE, BLOOD 0.64 0.60 - 1.00 mg/dL 07/13/2024 11:49 AM CDT [facility] BUN/CREATININE RATIO 14 12 - 20 ratio 07/13/2024 11:49 AM CDT [facility] TOTAL PROTEIN 7.4 6.0 - 8.0 g/dL 07/13/2024 11:49 AM CDT [facility] ALBUMIN 4.2 3.5 - 5.0 g/dL 07/13/2024 11:49 AM CDT [facility] A/G RATIO 1.3 1.0 - 2.2 07/13/2024 11:49 AM CDT [facility] CALCIUM 8.9 8.7 - 10.5 mg/dL 07/13/2024 11:49 AM CDT [facility] T BILI 0.9 0.2 - 1.2 mg/dL 07/13/2024 11:49 AM CDT [facility] SGOT (AST) 14 <43 U/L 07/13/2024 11:49 AM CDT [facility] SGPT (ALT) 26 <56 U/L 07/13/2024 11:49 AM CDT [facility] ALKALINE PHOSPHATASE 70 40 - 150 U/L 07/13/2024 11:49 AM CDT [facility] GFR, ESTIMATED >60 >=60 07/13/2024 11:49 AM CDT [facility] Comment: Creatinine Clearance is the preferred criteria for selecting drug dose adjustments in renally impaired patients. The GFR is provided as additional pertinent clinical information. GFR is reported in mL/min/1.73 sq m. Calculation based on the Chronic Kidney Disease Epidemiology Collaboration (CKD- EPI) equation refit without adjustment for race. GFR, EST. >60 >=60 025 11:49 AM CDT [facility] GFR, EST. NONAFRICAN >60 >=60 07/13/2024 11:49 AM CDT [facility] Blood Venipuncture / Unknown 07/13/2024 11:13 AM CDT 07/13/2024 11:23 AM CDT David Mcgregor PAC CHEMISTRY ORDERABLES Final Result [facility] [address] [place] [address] from Last 3 Months Insurance MEDICAID [employer]ICAID [employer] Care Teams Film Loader Relationship Specialty Start Date End Date Provider, None [place] PCP - General 10/19/16
[2024-08-18 12:34] VITALS: BP 135/87; PULSE 74; RESP 16; TEMP 36.4; O2SAT 98
[2024-08-18 13:00] LABS: EDCOVIDSCREEN Negative (Negative); EDINFLUASCREEN Negative (Negative); EDINFLUBSCREEN Negative (Negative); EDSTREPNEGPOS1 Negative (Negative)
--- NOTE | 2024-08-18 13:21 | ED_ITS ---
HPI - General Adult General Chief complaint: Upper Respiratory Infection Stated complaint: flu symptoms Source: patient Limitations: no limitations History of Present Illness HPI narrative: PATIENT PRESENTS FOR EVALUATION OF SICK SYMPTOMS FOR LAST 3 DAYS. SYMPTOMS INCLUDE SINUS CONGESTION, RHINORRHEA, COUGH, AND FEVER. NO NAUSEA, VOMITING, DIARRHEA. NO RECENT SICK CONTACTS TO HER KNOWLEDGE. SHE HAS NOT TRIED ANY MEDICATIONS TO ASSIST WITH HER SYMPTOMS. Related Data Home Medications ?Medication ?Instructions ?Recorded ?Confirmed ?Last Taken ?Type norgestimate 0.25 mg-ethinyl 1 tablet PO DAILY 10/24/23 12/16/23 Unknown History estradiol 0.035 mg tablet (Mariaa) Allergies Allergy/AdvReac Type Severity Reaction Status Date / Time No Known Allergies Allergy Verified 12/16/23 19:31 Review of Systems Review of Systems: CONSTITUTIONAL: DENIES FEVER, CHILLS, OR SWEATS. EYES: DENIES VISUAL CHANGES, REDNESS, OR DISCHARGE. ENT: REPORTS SORE THROAT. DENIES RHINORRHEA, CONGESTION, OR OTALGIA. CARDIOVASCULAR: DENIES CHEST PAIN, PALPITATIONS, OR EDEMA. RESPIRATORY: REPORTS COUGH. DENIES SHORTNESS OF BREATH. GASTROINTESTINAL: REPORTS NAUSEA. DENIES ABDOMINAL PAIN, VOMITING, OR DIARRHEA. GENITOURINARY: DENIES DYSURIA OR HEMATURIA. SKIN: DENIES RASH OR ITCHING. MUSCULOSKELETAL: DENIES BACK PAIN, JOINT PAIN, OR MYALGIA. NEUROLOGIC: DENIES HEADACHE, NUMBNESS, DIZZINESS, OR WEAKNESS. PSYCHIATRIC: DENIES ANXIETY OR DEPRESSION. [facility] Past Medical History Medical History No pertinent past medical history Surgical History Surgical History No pertinent past surgical history Family History Family History Father No problems noted. Social History Social History Smoking packs per day: 0 Smoking cigarettes per day: 0.0 Smoking status: Current every day smoker Tobacco type: cigarettes and e-cigarettes/vaping Additional smoking assessment comments: Vaping for 2 years Alcohol intake: current Alcohol use details: Not often Substance use: former Substance use type: marijuana Lack of Transportation: No Lack of Food: Never True Current Housing: I Have Housing Concerned About Future Housing: No Difficulty Paying Gas/Electric Bills: No Difficulty Paying for Meds: No Currently Unemployed: No Education: High School Diploma/GED Difficulty w/ Childcare or Family Care: No Living arrangements: with family Gender identity (if verbalized by the patient): Female Spiritual care concerns: No Agree to blood products: Yes Exam Narrative: GENERAL: WELL-APPEARING, WELL-NOURISHED, AND IN NO ACUTE DISTRESS. HEAD: NORMOCEPHALIC, ATRAUMATIC. EYES: PERRLA AND EOMI. ENT: NARES CLEAR, NO RHINORRHEA OR EPISTAXIS. MUCOUS MEMBRANES MOIST. OROPHARYNX WITHOUT TONSILLAR HYPERTROPHY EXUDATE OR OTHER LESIONS. BILATERAL TMS PEARLY CRUZ NONBULGING NECK: SUPPLE. NO ADENOPATHY OR MASSES. NO CAROTID BRUITS OR JVD CHEST: CLEAR TO AUSCULTATION. NO RESPIRATORY DISTRESS. NO WHEEZES RALES OR RHONCHI HEART: REGULAR RATE AND RHYTHM. NO MURMUR HEARD. NORMAL PERIPHERAL PULSES. ABDOMEN: SOFT, NONTENDER, NONDISTENDED, NORMAL ACTIVE BOWEL SOUNDS. EXTREMITIES: NORMAL RANGE OF MOTION. NO EDEMA. SKIN: WARM, DRY, NO RASH. NEURO: NO FOCAL DEFICITS. ALERT AND ORIENTED X3. PSYCH: NORMAL MOOD AND AFFECT. Course Course Emergency Course: THIS IS A 28-YEAR-OLD FEMALE WHO PRESENTED FOR EVALUATION OF SICK SYMPTOMS. COVID, STREP, INFLUENZA WERE NEGATIVE. WILL SEND THROAT CULTURE. INCREASE HYDRATION. [id number] AGENTS FOR SYMPTOM MANAGEMENT. FOLLOW UP WITH PRIMARY PROVIDER. GO TO THE ER FOR WORSENING SYMPTOMS. PATIENT IN AGREEMENT WITH PLAN OF CARE. Level of Care: Express Care Visit Vital Signs Vital signs: Vital Signs Temperature 36.4 C 08/18/24 12:34 Pulse Rate 74 08/18/24 12:34 Respiratory Rate 16 08/18/24 12:34 Blood Pressure 135/87 08/18/24 12:34 Pulse Oximetry 98 08/18/24 12:34 Temperature 36.4 C 08/18/24 12:34 Pulse Rate 74 08/18/24 12:34 Respiratory Rate 16 08/18/24 12:34 Blood Pressure 135/87 08/18/24 12:34 Pulse Oximetry 98 08/18/24 12:34 Medical Decision Making Vital Signs Vital Signs: Vital Signs Temperature 36.4 C 08/18/24 12:34 Pulse Rate 74 08/18/24 12:34 Respiratory Rate 16 08/18/24 12:34 Blood Pressure 135/87 08/18/24 12:34 Pulse Oximetry 98 08/18/24 12:34 Temperature 36.4 C 08/18/24 12:34 Pulse Rate 74 08/18/24 12:34 Respiratory Rate 16 08/18/24 12:34 Blood Pressure 135/87 08/18/24 12:34 Pulse Oximetry 98 08/18/24 12:34 Lab Data Labs: Lab Results 08/18/24 Range/Units 12:37 POC Influenza A Ag Negative (Negative) POC Influenza B Ag Negative (Negative) POC SARS CoV-2 Ag Negative (Negative) POC Grp A Strep Screen Negative (Negative) Discharge Plan Discharge Clinical Impression: Viral URI Patient Disposition: Home Condition: Stable Instructions: Antibiotic Form, Upper Respiratory Infection (DC), Viral Syndrome (ED) Additional Instructions: DEXTROMETHORPHAN AND CEPACOL LOZENGES SHOULD HELP YOUR SYMPTOMS INCREASE FLUID INTAKE Patient Language: Serbian Prescriptions: No Action norgestimate-ethinyl estradiol [Mariaa] 0.25-35 mg-mcg tablet 1 tablet PO DAILY Follow-up/Referrals: Abdias Marie MD [Physician] - Stand Alone Forms: Work/School Release IP Time of Disposition: 13:05
== END 2024-08-18 13:09 | disposition home or self-care (01) ==
PROVIDERS: Emergency Provider Nurse Practitioner
DX: J06.9 Acute upper respiratory infection, unspecified (principal); F17.210 Nicotine dependence, cigarettes, uncomplicated; F17.290 Nicotine dependence, other tobacco product, uncomplicated; Z20.822 Contact with and (suspected) exposure to COVID-19
CPT/HCPCS: 87081; 87426; 87804; 87880; 99212; G0463